=== PATIENT | male | born 1950 | race Caucasian/White ===

== ENCOUNTER → 2019-06-11 | Outpatient (CLI) | payer OTHER | END | disposition home or self-care (01) | LOC: PLD 08:53 → LAB SHORT 08:53 | DX: B35.1 Tinea unguium (principal); L60.2 Onychogryphosis | CPT/HCPCS: 88305; 88312 ==

== ENCOUNTER 2020-02-14 17:08 | Inpatient (IN) | payer OTHER ==
[~2020-02-14] VITALS: Ht 170.2 cm; Wt 75.2 kg
[2020-02-14 17:41] LABS: BASOPHILS ABSOLUTE AUTO 0.05 K/mm3 (0.00-0.23); BASOPHILS PERCENT AUTO 0 % (0-2); EOSINOPHILS ABSOLUTE AUTO 0.41 K/mm3 (0.00-0.68); EOSINOPHILS PERCENT AUTO 3 % (0-6); Hemoglobin 12.8 g/dL (13.5-17.5); IMMATURE GRAN ABSOLUTE AUTO 0.04 K/mm3 (0.00-0.10); IMMATURE GRAN PERCENT AUTO 0 % (0-1); LYMPHOCYTES ABSOLUTE AUTO 4.12 K/mm3 (0.84-5.20); LYMPHOCYTES PERCENT AUTO 31 % (21-46); MONOCYTES ABSOLUTE AUTO 0.86 K/mm3 (0.16-1.47); MONOCYTES PERCENT AUTO 7 % (4-13); Mean Corpuscular HGB Conc 33.7 g/dL (31.5-36.5); Mean Corpuscular Volume 89 fL (80-100); Mean Platelet Volume 8.8 fL (9.1-12.4); NEUTROPHILS ABSOLUTE AUTO 7.64 K/mm3 (1.96-9.15); NEUTROPHILS PERCENT AUTO 58 % (41-73); Platelet Count 282 K/mm3 (150-400); RDW Coefficient Variation 11.9 % (11.7-14.2); RDW Standard Deviation 38.3 fL (35.1-46.3); Red Blood Cell Count 4.26 M/mm3 (4.30-5.90); White Blood Cell Count 13.12 K/mm3 (4.00-11.30)
[2020-02-14] MEDS ORDERED: ZYRTEC10 M2 PO (17:44)
[2020-02-14] MEDS ORDERED: METO25 PO (17:44)
[2020-02-14] MEDS ORDERED: PACERONE100 M1 PO (17:44)
[2020-02-14] MEDS ORDERED: ATOR40TA (17:44)
[2020-02-14] MEDS ORDERED: GABA100 PO (17:45)
[2020-02-14] MEDS ORDERED: TAMS.4ER PO (17:45)
[2020-02-14] MEDS ORDERED: ELIQUIS5 MG PO (17:45)
[2020-02-14] MEDS ORDERED: LEVOTHYROXINE50 MCG PO (17:46)
[2020-02-14 17:55] LABS: Bun/Creatinine Ratio 14.9 (12.0-20.0); Calcium, Blood 8.8 mg/dL (8.5-10.1); Creatinine, Blood 1.41 mg/dL (0.60-1.20); Potassium, Blood 3.7 mmol/L (3.5-5.5)
--- NOTE | 2020-02-14 22:25 | NUR ---
ARRIVAL TO UNIT PT ARRIVED TO UNIT AT APPROX 2030 SLID TO BED FROM [facility] WITH SLIDER SHEET. REPORTED SIGNIFICANT INCREASE IN PAIN. 2L OXYGEN VIA NASAL CANULA, PT DENIES PAIN OTHERWISE AND WAS AGREEABLE TO ME GETTING PAIN MEDICATION SOON ALLOWED OR UNTIL I COULD SPEAK TO DOCTOR. PT AA0X4, CONTRACTURE TO L ARM BASELINE FOR PATIENT. PT ABLE TO HELP REPOSITION IN BED. UPON MILL OPERATOR HELPER TAKING VITALS HR FOUND TO BE IN 160'S PT APPEARED ANXIOUS. SPOKE WITH HOSPITALIST ALESHA AND GOT AN EKG AND WAS ASKED TO CALL DR. BANSAL. SPOKE WITH DR BANSAL WHO ORDERED IV METOPROLOL, TYLENOL, AND INCREASED PAIN MEDICATION. MEDICATED PT PER EMAR AND PER TELE PATIENT IS NOW SR IN 100'S DOWN FROM AFIB IN THE 160'S. PT CURRENTLY RESTING IN BED AND REPORTS PAIN OF 3/10. EATING A SNACK AND WATCHIG TV.
[2020-02-14 23:36] LABS: Influenza A, PCR Negative (NEGATIVE); Influenza B, PCR Negative (NEGATIVE); Resp Syncytial Virus, PCR Negative (NEGATIVE); SARS-Cov-2 (COVID-19) PCR, MMC Negative (NEGATIVE)
[2020-02-15 03:32] LABS: BASOPHILS ABSOLUTE AUTO 0.05 K/mm3 (0.00-0.23); BASOPHILS PERCENT AUTO 0 % (0-2); EOSINOPHILS PERCENT AUTO 2 % (0-6); Hemoglobin 11.8 g/dL (13.5-17.5); IMMATURE GRAN ABSOLUTE AUTO 0.03 K/mm3 (0.00-0.10); IMMATURE GRAN PERCENT AUTO 0 % (0-1); LYMPHOCYTES ABSOLUTE AUTO 1.55 K/mm3 (0.84-5.20); LYMPHOCYTES PERCENT AUTO 11 % (21-46); MONOCYTES ABSOLUTE AUTO 1.21 K/mm3 (0.16-1.47); MONOCYTES PERCENT AUTO 9 % (4-13); Mean Corpuscular HGB 29.9 pg (26.0-34.0); Mean Corpuscular HGB Conc 33.7 g/dL (31.5-36.5); Mean Corpuscular Volume 89 fL (80-100); Mean Platelet Volume 8.9 fL (9.1-12.4); NEUTROPHILS ABSOLUTE AUTO 10.68 K/mm3 (1.96-9.15); NEUTROPHILS PERCENT AUTO 78 % (41-73); Platelet Count 218 K/mm3 (150-400); RDW Standard Deviation 38.4 fL (35.1-46.3); Red Blood Cell Count 3.95 M/mm3 (4.30-5.90); White Blood Cell Count 13.72 K/mm3 (4.00-11.30)
[2020-02-15 03:45] LABS: Bun/Creatinine Ratio 16.1 (12.0-20.0); Calcium, Blood 8.6 mg/dL (8.5-10.1); Creatinine, Blood 1.68 mg/dL (0.60-1.20); Potassium, Blood 4.4 mmol/L (3.5-5.5)
[2020-02-15 04:05] LABS: Source, Urine Clean Catch
[2020-02-15 04:08] LABS: Appearance, Urine Clear (Clear); Blood, Urine Neg (Neg); Color, Urine Amber (P-Yellow); Glucose Qualitative, Urine Neg (Neg); Ketones, Urine 1+ (Neg); Leukocyte Esterase, Urine 1+ (Neg); Nitrite, Urine Neg (Neg); Protein, Urine 2+ (Neg); Specific Gravity, Urine 1.025 (1.003-1.022); Urobilinogen, Urine 1+ (Normal)
[2020-02-15 04:10] LABS: Bilirubin, Urine 1+ (Neg)
[2020-02-15 04:21] LABS: Bacteria Mod /hpf; Mucus Light (0-Heavy); Red Blood Cells, Urine 0-2 /hpf (0-2); Squamous Epithelial Cells Not Seen /hpf (Few)
--- NOTE | 2020-02-15 04:55 | NUR ---
SHIFT SUMMARY AA0X4, NO ACUTE CHANGES SINCE PREVIOUS NOTE. HR SINUS RHYTHM PER ASSEMBLY STOCK SUPERVISOR. NO AFIB AGAIN. PT TOLERATING PO FLUIDS WELL. PAIN REPORTED AT 3/10 MEDICATED PER EMAR. ELEVATED TEMP AT ARRIVAL TO UNIT, DOWN TO WNL AT THIS TIME WITH TYLENOL. PT USES URINAL WITH ASSISTANCE. CALLS APPROPRIATLY. MOVES SELF WELL IN BED AND REPOSITIONS FREQUENTLY. PLAN IS TO GO TO OR ON MONDAY R/T USE OF ELIQUIS. AT HOME.
--- NOTE | 2020-02-15 15:39 | NUR ---
TELE DIESEL MECHANIC CONSTRUCTION REPORTED PT CONVERTED BACK TO SR @ 1145 SENDING STRIP.
--- NOTE | 2020-02-15 15:52 | NUR ---
SUMMARY NO ACUTE CHANGES THUS FAR THIS SHIFT. MEDICATED PER ORDERS FOR PAIN T/O DAY. TOLERATING DIET. CUTTER BRAKE LINING REPORTED PT CONVERTED BACK TO SR AT 1145 THIS SHIFT. VSS. PT REPORTS PROBLEMS W/PROSTATE; TAKES FLOMAX. VOIDS 50-100 ML AT A TIME. ASSISTED W/URINAL PRN. CALL LIGHT IN REACH.
--- NOTE | 2020-02-15 16:24 | NUR ---
REPORTED OFF TO MAE Avalos RN.
--- NOTE | 2020-02-15 17:14 | NUR ---
ASSUMED PT CARE AT ABOUT 1615. AT ABOUT 1630 RECEIVED A CALL FROM TELE MONITOR, PT IN AFIB WITH RATE OF 115. VS TAKEN AT 1635 SEE RESULTS, BP STABLE AND HR BARELY AT 120 AT THIS TIME PER MONITOR. PT REPORTS NO CP, SOB. TECH INSTUCTED TO CALL AGIAN IF PT SUSTAINS HR OF 120 OR HIGHER. PT CONINTUED BE TACHYCARDIC AND TOPORAL GIVEN IV AT 1652. CONTINUING TO MONITOR
--- NOTE | 2020-02-15 18:09 | NUR ---
PT CONINTUES TO BE IN AFIB WITH HR 116, BP 133/92. PT CONTINUES TO DENY CP, SOB. SPOKE WITH DR. LABOY AT 1800 CONCERNING PT AFIB AND HR. SEE NEW ORDER.
--- NOTE | 2020-02-15 18:20 | NUR ---
CALL FROM [employer], PT CONVERTED BACK TO SINUS RHYTHM AT ABOUT 1815. HR 68, BP 144/78. ORDER FOR ONE TIME DOSE OF IV LOPRESSOR HELD.
--- NOTE | 2020-02-16 04:18 | NUR ---
SHIFT SUMMARY L HIP FX. PT AA0X4, RESTING IN BED AND REPOSITIONING SELF T/0 NIGHT. NPO SINCE MIDNIGHT FOR PLANNED PROCEDURE. SINUS RHYTHM PER FISHERIES DIRECTOR. PT USING URINAL INDEPENDENTLY. MEDICATED FOR PAIN PER EMAR. PT TOLERATING PAIN WITH THE FENTANYL PRN.
--- NOTE | 2020-02-16 09:06 | NUR ---
PT TO OR
--- NOTE | 2020-02-16 13:00 | NUR ---
PT BACK TO ROOM FROM PACU VSS. DRESSING TO LLE CDI. PT DENIES PAIN AT THIS TIME. CALL LIGHT IN REACH.
--- NOTE | 2020-02-16 14:46 | NUR ---
CARE ASSUMED OF PATIENT. HE IS RESTING COMFORTABLY IN BED WHILE WATCHING TV AT THIS TIME. CALL LIGHT WITHIN REACH.
--- NOTE | 2020-02-16 15:41 | NUR ---
SHIFT SUMMARY: POD 0 LEFT FEMORAL REPAIR PATIENT HAS BEEN SLEEPING DURING THE SHIFT BUT IS EASILY AROUSABLE. WHILE AWAKE HE IS ALERT AND ORIENTED X4. VITALS ARE WNL. HE IS ON 2L OXYGEN BUT WILL GRADUALLY BE WEANED OFF TOLERATED. HE REPORTS NOT HAVING PAIN THIS FAR INTO THE SHIFT. HE DOES HAVE PAIN MEDICATIONS IN EMAR PRN. HE HAS TOLERATED PO INTAKE. THE TELE TACH REPORTS THE PATIENT IS CURRENTLY SINUS VALENTIN @ 50 BPM AND HAS BEEN IN THE LOW-HIGH 50'S THIS SHIFT. USES URNAL WHEN NEEDING TO VOID BUT NEEDS HELP WITH PLACEMENT SINCE HE HAS A HX OF A CVA WITH A WEAKENED LEFT SIDE. 1X AQUACEL ON LEFT HIP IS D/C/I. CALLS APPROPRIATELY. CALL LIGHT WITHIN REACH. THE PLAN IS TO WORK WITH PHYSICAL THERAPY TOMORROW.
--- NOTE | 2020-02-16 16:08 | NUR ---
PATIENT HAS STAYED CONSITANTLY IN THE 50'S FOR 30 MINUTES ACCORDING TO CRANE OPERATOR. THIS NURSE TOOK HIS VITALS AND THEY ARE WNL. I CALLED THE CRANE OPERATOR BACK TO LET ME KNOW IF HIS HR GOES DOWN TO THE 40'S BECAUSE THEN I WOULD BE CALLING THE DOCTOR. PATIENT IS CURRENTLY FALLING BACK ASLEEP AND IS LIGHTLY SNORING. CALL LIGHT IS WITHIN REACH.
--- NOTE | 2020-02-16 17:38 | NUR ---
CALLED DR. LABOY ABOUT THIS PATIENT. THE PAST COUPLE OF HOURS THIS PATIENT'S HR BEEN IN THE 50'S @ SINUS AND SYSTOLIC BP IN 100-120'S. AFTER REPOSITIONING PATIENT, HIS SYSTOLIC BP WENT TO 140. ACCORDING TO SENIOR IT PROJECT MANAGER CONRAD IT IS IN [address] LABOY SAID TO MONITOR HR AND BP. IF HR IS <50 BPM FOR A PROLONGED TIME HE SHOULD BE CALLED. OR IF PATIENT'S SYSTOLIC IS CONSISTANTLY 130 TO ALSO GIVE HIM A CALL.
--- NOTE | 2020-02-17 05:21 | NUR ---
PT HAS BEEN IN AFIB TONIGHT.TELE NOTIFIED ME THAT PT CONVERTED TO SINUS VALENTIN AND IS SUSTAINING HEART RATE 46-48.PT ASYMPTOMATIC OF CHANGE.I NOTIFIED DR BANSAL OF ABOVE.DOCTOR ORDERED EKG.
--- NOTE | 2020-02-17 06:28 | NUR ---
SUMMARY EKG X2 PT UNABLE TO COMPLETEY RELAX MUSCLES. I CALLED RESULTS TO DR BANSAL WITH NO NEW ORDERDS.
[2020-02-17 09:12] LABS: BASOPHILS ABSOLUTE AUTO 0.01 K/mm3 (0.00-0.23); BASOPHILS PERCENT AUTO 0 % (0-2); EOSINOPHILS ABSOLUTE AUTO 0.01 K/mm3 (0.00-0.68); EOSINOPHILS PERCENT AUTO 0 % (0-6); Hematocrit 31.4 % (37.0-53.0); Hemoglobin 10.5 g/dL (13.5-17.5); IMMATURE GRAN ABSOLUTE AUTO 0.13 K/mm3 (0.00-0.10); IMMATURE GRAN PERCENT AUTO 1 % (0-1); LYMPHOCYTES ABSOLUTE AUTO 1.32 K/mm3 (0.84-5.20); LYMPHOCYTES PERCENT AUTO 8 % (21-46); MONOCYTES ABSOLUTE AUTO 1.21 K/mm3 (0.16-1.47); MONOCYTES PERCENT AUTO 8 % (4-13); Mean Corpuscular HGB 30.4 pg (26.0-34.0); Mean Corpuscular HGB Conc 33.4 g/dL (31.5-36.5); Mean Corpuscular Volume 91 fL (80-100); Mean Platelet Volume 9.2 fL (9.1-12.4); NEUTROPHILS ABSOLUTE AUTO 13.31 K/mm3 (1.96-9.15); NEUTROPHILS PERCENT AUTO 83 % (41-73); Platelet Count 226 K/mm3 (150-400); RDW Coefficient Variation 12.4 % (11.7-14.2); RDW Standard Deviation 40.7 fL (35.1-46.3); Red Blood Cell Count 3.45 M/mm3 (4.30-5.90); White Blood Cell Count 15.99 K/mm3 (4.00-11.30)
[2020-02-17 09:33] LABS: Anion Gap 5 mmol/L (6-16); Blood Urea Nitrogen 12 mg/dL (8-24); Bun/Creatinine Ratio 10.3 (12.0-20.0); CO2, Blood 28 mmol/L (21-32); Calcium, Blood 8.2 mg/dL (8.5-10.1); Chloride, Blood 108 mmol/L (98-108); Creatinine, Blood 1.17 mg/dL (0.60-1.20); Glomerular Filtration Rate >60 (60-); Glucose, Blood 93 mg/dL (70-99); Potassium, Blood 4.4 mmol/L (3.5-5.5); Sodium, Blood 141 mmol/L (136-145)
--- NOTE | 2020-02-17 19:57 | NUR ---
SUMMARY PT [place] PO INTAKE DENIES N/V. PT WORKED W/ THERAPY TODAY. PT REPORTED MINIMAL PAIN. HE HAD X2 EPISODE OF AFIB BETWEEN 100-120S HR. PT WAS ASYMPTOMATIC DENIES CHEST PAIN/PRESSURE AND SOB. POSSIBLE DISCHARGE TO SNF TOMORROW, WAITING FOR AUTHORIZATION FROM [facility] [facility]. PT AGREED WITH THE PLAN.
--- NOTE | 2020-02-18 06:48 | NUR ---
SHIFT SUMMARY: NELSON IS A&OX4. PATIENT TRANSPORTATION DRIVER HAS CONTACTED THIS NURSE MULTIPLE TIMES DURING THE NIGHT WITH UPDATES ON HIS HEART RHYTHM. HE HAS BOUNCED BETWEEN SR, SINUS BRADYCARDIA, A-FIB, A-FLUTTER, AND SINUS TACH. ON-CALL PHYSICIAN NOTIFIED, NO NEW ORDER GIVEN. METOPROLOL IV PUSH GIVEN ONCE. HE IS TOLERATING PO INTAKE WELL, ABLE TO SWALLOW PILLS WITHOUT DIFFICULTY. HE USES THE URINAL INDEPENDENTLY. HE STATES PAIN CONTROL IS ADEQUATE WITH 50 MCG OF FENTANYL, BUT THAT THE TYLENOL IS INEFFECTIVE. HE IS LYING IN BED WITH HIS CALL LIGHT IN REACH. WILL REPORT TO DAY SHIFT RN.
[2020-02-18 11:39] LABS: Influenza A, PCR Negative (NEGATIVE); Influenza B, PCR Negative (NEGATIVE); Resp Syncytial Virus, PCR Negative (NEGATIVE); SARS-Cov-2 (COVID-19) PCR, MMC Negative (NEGATIVE)
--- NOTE | 2020-02-18 15:33 | NUR ---
PT EXPECTING TO TRANSFER TO [facility] AT APPROX 1800 PER CARE MANAGEMENT.
--- NOTE | 2020-02-18 15:36 | NUR ---
TELE BOX RETURNED TO PCU.
--- NOTE | 2020-02-18 16:11 | NUR ---
REPORT CALLED TO KEILY BECERRA. TRANSPORTATION SET UP FOR 1800 + DISCHARGE PACKET PREPARED WITH ORDERS + [facility] + AQUACEL DRESSINGS PER CARE MANAGEMENT.
--- NOTE | 2020-02-18 17:53 | NUR ---
TRANSPORT TO TAKE PT TO [facility]. PERSONAL BELONGINGS + PACKET SENT WITH PT.
== END 2020-02-18 17:52 | DRG 522 ==
LOC: ER 17:08 → SURS 20:47
PROVIDERS: Internal Medicine; Orthopaedic Surgery; Student in an Organized Health Care Education/Training Program; ADMIT Family Medicine
PROC: 0SRS0JZ Replacement of Left Hip Joint, Femoral Surface with Synthetic Substitute, Open Approach (ICD-10-PCS; principal; 2020-02-16 11:00)
DX: S72.002A Fracture of unspecified part of neck of left femur, initial encounter for closed fracture (principal); R65.10 Systemic inflammatory response syndrome (SIRS) of non-infectious origin without acute organ dysfunction; I69.354 Hemiplegia and hemiparesis following cerebral infarction affecting left non-dominant side; W10.9XXA Fall (on) (from) unspecified stairs and steps, initial encounter; Y93.9 Activity, unspecified; Y92.9 Unspecified place or not applicable; I48.91 Unspecified atrial fibrillation; E78.5 Hyperlipidemia, unspecified; M79.2 Neuralgia and neuritis, unspecified; N18.30 Chronic kidney disease, stage 3 unspecified; I12.9 Hypertensive chronic kidney disease with stage 1 through stage 4 chronic kidney disease, or unspecified chronic kidney disease; E03.9 Hypothyroidism, unspecified; Z20.828 Contact with and (suspected) exposure to other viral communicable diseases; Z87.891 Personal history of nicotine dependence
CPT/HCPCS: 0241U; 36415; 70450; 71045; 72170; 73502; 80048; 81001; 85025; 87086; 93005; 93010; 96374; 96375; 97110; 97163; 97166; 97530; 97535; 99285-25; A9270; A9270-GY; C1776; J0690; J1100; J1885; J2370; J2405; J2704; J3010

== ENCOUNTER → 2020-04-01 | Outpatient (CLI) | payer OTHER ==
[~2020-04-01] MED LIST: ATOR40TA; ELIQUIS5 MG PO; GABA100 PO; LEVOTHYROXINE50 MCG PO; METO25 PO; PACERONE100 M1 PO; TAMS.4ER PO; ZYRTEC10 M2 PO
[2020-04-01 19:58] LABS: BASOPHILS ABSOLUTE AUTO 0.05 K/mm3 (0.00-0.23); BASOPHILS PERCENT AUTO 1 % (0-2); EOSINOPHILS ABSOLUTE AUTO 0.49 K/mm3 (0.00-0.68); EOSINOPHILS PERCENT AUTO 5 % (0-6); Hematocrit 37.2 % (37.0-53.0); Hemoglobin 12.1 g/dL (13.5-17.5); IMMATURE GRAN ABSOLUTE AUTO 0.02 K/mm3 (0.00-0.10); IMMATURE GRAN PERCENT AUTO 0 % (0-1); LYMPHOCYTES ABSOLUTE AUTO 2.32 K/mm3 (0.84-5.20); LYMPHOCYTES PERCENT AUTO 24 % (21-46); MONOCYTES ABSOLUTE AUTO 1.01 K/mm3 (0.16-1.47); MONOCYTES PERCENT AUTO 10 % (4-13); Mean Corpuscular HGB 30.1 pg (26.0-34.0); Mean Corpuscular HGB Conc 32.5 g/dL (31.5-36.5); Mean Corpuscular Volume 93 fL (80-100); Mean Platelet Volume 8.9 fL (9.1-12.4); NEUTROPHILS ABSOLUTE AUTO 5.78 K/mm3 (1.96-9.15); NEUTROPHILS PERCENT AUTO 60 % (41-73); Platelet Count 313 K/mm3 (150-400); RDW Coefficient Variation 12.6 % (11.7-14.2); RDW Standard Deviation 42.5 fL (35.1-46.3); Red Blood Cell Count 4.02 M/mm3 (4.30-5.90); White Blood Cell Count 9.67 K/mm3 (4.00-11.30)
[2020-04-01 20:25] LABS: Alanine Aminotransfer (ALT/SGP 42 U/L (12-78); Albumin, Blood 3.5 g/dL (3.4-5.0); Albumin/Globulin Ratio 1.1 (0.8-1.8); Alk Phos 169 U/L (50-136); Anion Gap 3 mmol/L (6-16); Aspartate Aminotrans (AST/SGOT 24 U/L (12-37); Bilirubin, Total 0.3 mg/dL (0.1-1.0); Blood Urea Nitrogen 17 mg/dL (8-24); CHOL/HDL RATIO 2.8; CO2, Blood 29 mmol/L (21-32); Chloride, Blood 109 mmol/L (98-108); Cholesterol 128 mg/dL (50-200); Globulin, Blood 3.3 g/dL (2.2-4.0); Glucose, Blood 115 mg/dL (70-99); HDL Cholesterol 45 mg/dL (>39); LDL/HDL RATIO 0.9; Low Density Lipoprotein Chol 40 mg/dL (0-110); Potassium, Blood 4.4 mmol/L (3.5-5.5); Sodium, Blood 141 mmol/L (136-145); Total Protein, Blood 6.8 g/dL (6.4-8.2); Triglycerides 214 mg/dL (30-160); Very Low Density Lipoprot Chol 42 mg/dL (6-32)
[2020-04-01 20:31] LABS: Creatinine, Blood 1.21 mg/dL (0.60-1.20); Glomerular Filtration Rate >60 (60-)
== END | disposition home or self-care (01) ==
LOC: LAB SHORT 15:00 → LAB 15:00
PROVIDERS: Nurse Practitioner Family
DX: E05.90 Thyrotoxicosis, unspecified without thyrotoxic crisis or storm (principal); E78.5 Hyperlipidemia, unspecified; I10 Essential (primary) hypertension
CPT/HCPCS: 80053; 80061; 84443; 85025

== ENCOUNTER 2020-10-31 22:16 | Emergency (ER) | payer OTHER ==
[~2020-10-31] VITALS: Ht 170.2 cm; Wt 74.8 kg
[2020-11-01] MEDS ORDERED: Vibramycin100 MG PO (00:16)
== END 2020-11-01 00:42 | disposition home or self-care (01) ==
LOC: ER 22:16
DX: L98.491 Non-pressure chronic ulcer of skin of other sites limited to breakdown of skin (principal); Z88.5 Allergy status to narcotic agent; Z79.899 Other long term (current) drug therapy; Z79.01 Long term (current) use of anticoagulants; Z86.73 Personal history of transient ischemic attack (TIA), and cerebral infarction without residual deficits
CPT/HCPCS: A9270

== ENCOUNTER → 2022-12-27 | Outpatient (CLI) | payer OTHER ==
[~2022-12-27] MED LIST changes: +Vibramycin100 MG PO
[2022-12-27 16:42] LABS: BASOPHILS ABSOLUTE AUTO 0.09 K/mm3 (0.00-0.23); BASOPHILS PERCENT AUTO 1 % (0-2); EOSINOPHILS ABSOLUTE AUTO 0.46 K/mm3 (0.00-0.68); EOSINOPHILS PERCENT AUTO 5 % (0-6); Hematocrit 41.7 % (37.0-53.0); Hemoglobin 14.6 g/dL (13.5-17.5); IMMATURE GRAN ABSOLUTE AUTO 0.01 K/mm3 (0.00-0.10); IMMATURE GRAN PERCENT AUTO 0 % (0-1); LYMPHOCYTES ABSOLUTE AUTO 3.09 K/mm3 (0.84-5.20); LYMPHOCYTES PERCENT AUTO 34 % (21-46); MONOCYTES ABSOLUTE AUTO 0.87 K/mm3 (0.16-1.47); MONOCYTES PERCENT AUTO 10 % (4-13); Mean Corpuscular Volume 94 fL (80-100); Mean Platelet Volume 9.7 fL (9.1-12.4); NEUTROPHILS ABSOLUTE AUTO 4.49 K/mm3 (1.96-9.15); NEUTROPHILS PERCENT AUTO 50 % (41-73); Platelet Count 266 K/mm3 (150-400); RDW Coefficient Variation 13.1 % (11.7-14.2); RDW Standard Deviation 41.4 fL (35.1-46.3); Red Blood Cell Count 4.43 M/mm3 (4.30-5.90); White Blood Cell Count 9.01 K/mm3 (4.00-11.30)
[2022-12-27 17:54] LABS: Albumin/Globulin Ratio 1.1 (0.8-1.8); Alk Phos 133 U/L (50-136); Anion Gap 7 mmol/L (6-16); Aspartate Aminotrans (AST/SGOT 20 U/L (12-37); Bilirubin, Total 0.4 mg/dL (0.1-1.0); Blood Urea Nitrogen 14 mg/dL (8-24); Bun/Creatinine Ratio 10.5 (12.0-20.0); CHOL/HDL RATIO 2.5; CO2, Blood 28 mmol/L (21-32); Chloride, Blood 111 mmol/L (98-108); Cholesterol 130 mg/dL (50-200); Creatinine, Blood 1.33 mg/dL (0.60-1.20); Free Thyroxine 1.56 ng/dL (0.70-1.60); Globulin, Blood 3.5 g/dL (2.2-4.0); Glomerular Filtration Rate 57 (60-); Glucose, Blood 108 mg/dL (70-99); HDL Cholesterol 53 mg/dL (>39); LDL/HDL RATIO 0.9; Low Density Lipoprotein Chol 50 mg/dL (0-110); Potassium, Blood 3.9 mmol/L (3.5-5.5); Sodium, Blood 146 mmol/L (136-145); Total Protein, Blood 7.5 g/dL (6.4-8.2); Triglycerides 134 mg/dL (30-160); Very Low Density Lipoprot Chol 26 mg/dL (6-32)
[2022-12-27 18:01] LABS: Alanine Aminotransfer (ALT/SGP 31 U/L (12-78); Thyroid Stimulating Hormone 0.373 uIU/mL (0.360-4.800)
== END | disposition home or self-care (01) ==
LOC: LAB 09:15 → LAB SHORT 09:15
PROVIDERS: Nurse Practitioner Family
DX: E78.5 Hyperlipidemia, unspecified (principal); E03.9 Hypothyroidism, unspecified; I10 Essential (primary) hypertension
CPT/HCPCS: 80053; 80061; 84439; 84443; 85025

== ENCOUNTER 2024-05-06 00:05 | Emergency (ER) | payer OTHER ==
[~2024-05-06] VITALS: Ht 170.2 cm; Wt 77.1 kg
[2024-05-06 01:43] VITALS: BP 150/102
== END 2024-05-06 05:26 | disposition home or self-care (01) ==
LOC: ER 00:05
DX: S01.01XA Laceration without foreign body of scalp, initial encounter (principal); W18.30XA Fall on same level, unspecified, initial encounter; Z87.891 Personal history of nicotine dependence; Z88.5 Allergy status to narcotic agent; Z79.899 Other long term (current) drug therapy; Z79.02 Long term (current) use of antithrombotics/antiplatelets; Z79.01 Long term (current) use of anticoagulants; Z79.83 Long term (current) use of bisphosphonates; Z79.891 Long term (current) use of opiate analgesic; Z79.890 Hormone replacement therapy; Z79.2 Long term (current) use of antibiotics
CPT/HCPCS: 12002; 70450; 72125; 93005; 93010; 99284-25